=== PATIENT | female | born 1965 | race Caucasian/White ===

== ENCOUNTER → 2018-05-14 | Outpatient (CLI) | payer OTHER ==
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
== END ==
LOC: RAD 14:11
PROVIDERS: ATTEND Chiropractor
DX: G44.311 Acute post-traumatic headache, intractable (principal); M47.892 Other spondylosis, cervical region

== ENCOUNTER → 2018-10-26 | Outpatient (CLI) | payer OTHER ==
--- NOTE | 2018-10-26 15:44 | RAD ---
History: Radiculopathy. Three-view Cervical spine series, with flexion and extension: Lateral views are obtained with the patient in neutral, flexion and extension positions. On neutral positioning straightening of the normal lordotic curvature is apparent with visualization of skull base to C7. The prevertebral soft tissues remain normal and visualized posterior elements intact. Loss of disc height C6-C7 with anterior osteophyte is appreciated. No abnormal motion is shown on flexion and extension views. IMPRESSION: Straightening normal lordotic curvature without acute bony injury identified suggestive of underlying muscle spasm or patient positioning. Electronically signed by: Sangeetha Lo MD 10/26/2018 3:41 PM CDT Workstation: [id number]
== END ==
LOC: RAD 11:25
PROVIDERS: ATTEND Chiropractor
DX: S13.4XXA Sprain of ligaments of cervical spine, initial encounter (principal); M54.12 Radiculopathy, cervical region; M99.01 Segmental and somatic dysfunction of cervical region

== ENCOUNTER → 2019-02-10 | Outpatient (CLI) | payer OTHER ==
--- NOTE | 2019-02-10 14:20 | RAD ---
PROVIDED CLINICAL HISTORY/REASON FOR EXAM: NECK PAIN Findings: Number of images: 3 Location: Cervical spine C1- C7 demonstrated on the lateral view. Prevertebral soft tissues are unremarkable. No acute fracture or subluxation. Vertebral body heights are maintained. Mild multilevel degenerative disc disease. Findings most pronounced at C6/C7 with mild disc space narrowing, endplate degenerative change and osteophytosis. Minimal facet hypertrophy. No abnormal translational movement. IMPRESSION: Mild multilevel cervical spondylosis. No acute fracture or subluxation. No abnormal translational motion. Electronically signed by: Jarrod Pruitt MD 02/10/2019 2:17 PM CDT
== END ==
LOC: RAD 11:33
PROVIDERS: ATTEND Chiropractor
DX: G44.319 Acute post-traumatic headache, not intractable (principal); S13.4XXA Sprain of ligaments of cervical spine, initial encounter; M50.320 Other cervical disc degeneration, mid-cervical region, unspecified level; M47.892 Other spondylosis, cervical region

== ENCOUNTER → 2020-06-05 | Outpatient (CLI) | payer SELFPAY | LOC: LAB.O 07:16 | PROVIDERS: ATTEND General Practice | DX: Z03.818 Encounter for observation for suspected exposure to other biological agents ruled out (principal) ==